=== PATIENT | male | born 1950 | race Caucasian/White ===

== ENCOUNTER 2024-02-01 18:53 | Emergency (ER) | payer OTHER ==
[~2024-02-01] VITALS: Ht 172.7 cm; Wt 85.0 kg
[2024-02-01 18:57] VITALS: BP 156/83; PULSE 105; RESP 20; TEMP 99.3; O2SAT 97
== END 2024-02-01 23:28 | disposition left against medical advice (07) ==
LOC: ER 18:54
DX: R05.9 Cough, unspecified (principal); J02.9 Acute pharyngitis, unspecified; R49.1 Aphonia; Z53.21 Procedure and treatment not carried out due to patient leaving prior to being seen by health care provider
CPT/HCPCS: 99281